=== PATIENT | male | born 1980 | race Caucasian/White ===

== ENCOUNTER 2023-01-21 19:37 | Emergency (ER) | payer OTHER ==
[~2023-01-21] VITALS: Ht 170.2 cm; Wt 81.8 kg
[2023-01-21] MEDS ORDERED: KETOROLAC 30 MG/ML 1ML VIAL IV ONE (21:45)
[2023-01-21] MEDS ORDERED: diazePAM 5MG TABLET PO ONE (21:45)
[2023-01-21] MEDS ORDERED: LIDOCAINE 5% (LIDODERM) PATCH TD ONE (21:45)
[2023-01-21] MEDS ORDERED: methocarbamoL 750 MG TAB PO ONE (22:45)
[2023-01-21] MEDS ORDERED: NORCO, ANEXSIA 5/325MG TABLET (HYDROcodone/ACETAMINOPHEN) PO ONE (22:45)
[2023-01-21] MEDS ORDERED: predniSONE 20 MG TAB PO ONE (22:45)
[2023-01-21] MEDS ORDERED: NORCO 5/325MG TABLET (HOME DOSE PACK) PO ONE (23:50)
[2023-01-21] MEDS ORDERED: KETO10TAB PO (23:52)
[2023-01-21] MEDS ORDERED: METH-1165 PO (23:52)
[2023-01-21] MEDS ORDERED: LIDO5DIS41 TD (23:52)
[2023-01-21 23:58] VITALS: BP 89/51; TEMP 97.3; O2SAT 97
== END 2023-01-22 01:06 | disposition home or self-care (01) ==
LOC: M ED 19:37
DX: S33.5XXA Sprain of ligaments of lumbar spine, initial encounter (principal); X50.0XXA Overexertion from strenuous movement or load, initial encounter; F10.10 Alcohol abuse, uncomplicated; Z79.899 Other long term (current) drug therapy
CPT/HCPCS: 72110; 96374; 99283; J1885; J7512

== ENCOUNTER 2023-07-23 12:37 | Emergency (ER) | payer OTHER ==
[~2023-07-23] VITALS: Ht 170.2 cm; Wt 81.8 kg
[~2023-07-23 12:37] MED LIST: KETO10TAB PO; LIDO5DIS41 TD; METH-1165 PO
[2023-07-23] MEDS: NS 1,000 ML IV ONE (16:28)
[2023-07-23 17:05] VITALS: BP 135/78; TEMP 97; O2SAT 97
== END 2023-07-23 17:27 | disposition home or self-care (01) ==
LOC: M ED 12:37
DX: R19.7 Diarrhea, unspecified (principal); B34.2 Coronavirus infection, unspecified; F17.200 Nicotine dependence, unspecified, uncomplicated; F10.10 Alcohol abuse, uncomplicated

== ENCOUNTER → 2023-11-13 | Outpatient (CLI) | payer OTHER | LOC: M CARPUL 12:37 | PROVIDERS: ATTEND Physician Assistant | DX: R06.02 Shortness of breath (principal) ==

== ENCOUNTER → 2023-12-23 | Outpatient (CLI) | payer OTHER ==
[~2023-12-23] MED LIST changes: +METHACHOLINE KIT (6 VIAL.NEB PREMIX) INH ONE
== END ==
LOC: M CARPUL 13:43
PROVIDERS: ATTEND Physician Assistant
DX: R06.02 Shortness of breath (principal)
CPT/HCPCS: 94070; J7674